=== PATIENT | male | born 1970 | race Caucasian/White ===

== ENCOUNTER → 2017-01-13 | Outpatient (CLI) | payer OTHER ==
[2017-01-13 10:07] LABS: Basophils # (A) 0.1 k/uL (0-0.2); Basophils % (A) 1 %; CH 27.9; CHCM 31.7; Eosinophils # (A) 0.1 k/uL (0-0.7); Eosinophils % (A) 2 %; HDW 2.49; HGB 13.2 gm/dL (13.0-17.5); Luc # (Auto) 0.16; Luc % (Auto) 3; Lymphocytes # (A) 2.7 k/uL (1.0-4.8); Lymphocytes % (A) 42 %; MCH 27.7 pg (25.0-35.0); MCHC 31.3 g/dL (31.0-37.0); MCV 88.3 fL (80.0-100.0); Mean Platelet Volume 6.3; Monocytes # (A) 0.4 k/uL (0-1.0); Monocytes % (A) 6 %; Neutrophils # (A) 3.1 k/uL (1.3-7.7); Neutrophils % (A) 47 %; RBC 4.76 m/uL (4.30-5.90); WBC 6.5 k/uL (3.8-10.6); WBC (Perox) 6.78
[2017-01-13 10:28] LABS: ALT 102 U/L (21-72); AST 87 U/L (17-59); Alkaline Phosphatase 258 U/L (38-126); Anion Gap 7 mmol/L; Blood Urea Nitrogen 20 mg/dL (9-20); Calcium 9.5 mg/dL (8.4-10.2); Carbon Dioxide 31 mmol/L (22-30); Chloride 106 mmol/L (98-107); Cholesterol 154 mg/dL (<200); Glucose 59 mg/dL (74-99); HDL Cholesterol 47 mg/dL (40-60); Non-African American GFR(MDRD) >60 (>60 ml/min/1.73 sqM); Potassium 5.4 mmol/L (3.5-5.1); Sodium 144 mmol/L (137-145); Total Bilirubin 0.4 mg/dL (0.2-1.3); Triglycerides 140 mg/dL (<150)
[2017-01-13 12:05] LABS: Hemoglobin A1C 8.8 % (4.2-6.1)
== END | disposition home or self-care (01) ==
LOC: LABWHC1 09:22
PROVIDERS: ATTEND Family Medicine
DX: E10.65 Type 1 diabetes mellitus with hyperglycemia (principal); E78.5 Hyperlipidemia, unspecified
CPT/HCPCS: 36415; 80053; 80061; 83036; 85025

== ENCOUNTER → 2017-10-28 | Outpatient (CLI) | payer OTHER ==
[2017-10-28 11:52] LABS: Basophils % (A) 1 %; Eosinophils # (A) 0.2 k/uL (0-0.7); Eosinophils % (A) 3 %; HCT 42.2 % (39.0-53.0); Lymphocytes # (A) 2.4 k/uL (1.0-4.8); Lymphocytes % (A) 41 %; MCH 27.5 pg (25.0-35.0); MCHC 30.9 g/dL (31.0-37.0); MCV 89.1 fL (80.0-100.0); Mean Platelet Volume 6.5; Monocytes # (A) 0.4 k/uL (0-1.0); Monocytes % (A) 7 %; Neutrophils # (A) 2.7 k/uL (1.3-7.7); Neutrophils % (A) 46 %; Platelet Count 301 k/uL (150-450); RBC 4.74 m/uL (4.30-5.90); RDW 13.9 % (11.5-15.5); WBC 5.8 k/uL (3.8-10.6)
[2017-10-28 11:57] LABS: ALT 51 U/L (21-72); AST 50 U/L (17-59); Albumin 3.9 g/dL (3.5-5.0); Alkaline Phosphatase 175 U/L (38-126); Anion Gap 7 mmol/L; Blood Urea Nitrogen 18 mg/dL (9-20); Calcium 9.5 mg/dL (8.4-10.2); Carbon Dioxide 31 mmol/L (22-30); Chloride 107 mmol/L (98-107); Cholesterol 128 mg/dL (<200); Glucose 68 mg/dL (74-99); HDL Cholesterol 38 mg/dL (40-60); LDL Cholesterol,Calculated 66 mg/dL (0-99); Potassium 4.4 mmol/L (3.5-5.1); Sodium 145 mmol/L (137-145); Total Bilirubin 0.4 mg/dL (0.2-1.3); Total Protein 6.3 g/dL (6.3-8.2); Triglycerides 121 mg/dL (<150)
[2017-10-28 12:27] LABS: PSA Annual Screen 0.34 ng/mL (0.00-4.00)
[2017-10-28 16:51] LABS: Vitamin D 25 Hydroxy 22.6 ng/mL (30.0-100.0)
[2017-10-28 23:39] LABS: Hemoglobin A1C 8.9 % (4.0-6.0)
== END | disposition home or self-care (01) ==
LOC: LABWHC1 11:07
PROVIDERS: ATTEND Family Medicine
DX: Z00.01 Encounter for general adult medical examination with abnormal findings (principal); E10.65 Type 1 diabetes mellitus with hyperglycemia; E78.5 Hyperlipidemia, unspecified; Z12.5 Encounter for screening for malignant neoplasm of prostate
CPT/HCPCS: 80061; 80053; 84443; 82607; 85025; 82306; 83036; 36415; G0103

== ENCOUNTER → 2018-04-28 | Outpatient (CLI) | payer OTHER ==
[2018-04-28 10:10] LABS: Basophils % (A) 0 %; Eosinophils # (A) 0.2 k/uL (0-0.7); Eosinophils % (A) 3 %; HGB 13.3 gm/dL (13.0-17.5); Lymphocytes # (A) 2.6 k/uL (1.0-4.8); Lymphocytes % (A) 46 %; MCH 27.4 pg (25.0-35.0); MCHC 31.7 g/dL (31.0-37.0); MCV 86.6 fL (80.0-100.0); Mean Platelet Volume 6.4; Monocytes # (A) 0.3 k/uL (0-1.0); Monocytes % (A) 6 %; Neutrophils # (A) 2.4 k/uL (1.3-7.7); Neutrophils % (A) 42 %; Platelet Count 311 k/uL (150-450); RBC 4.85 m/uL (4.30-5.90); RDW 14.3 % (11.5-15.5); WBC 5.6 k/uL (3.8-10.6)
[2018-04-28 10:37] LABS: ALT 62 U/L (21-72); AST 56 U/L (17-59); Alkaline Phosphatase 192 U/L (38-126); Anion Gap 5 mmol/L; Blood Urea Nitrogen 19 mg/dL (9-20); Calcium 9.9 mg/dL (8.4-10.2); Carbon Dioxide 29 mmol/L (22-30); Chloride 107 mmol/L (98-107); Cholesterol 261 mg/dL (<200); Glucose 145 mg/dL (74-99); HDL Cholesterol 45 mg/dL (40-60); LDL Cholesterol,Calculated 182 mg/dL (0-99); Potassium 5.4 mmol/L (3.5-5.1); Sodium 141 mmol/L (137-145); Total Bilirubin 0.4 mg/dL (0.2-1.3); Total Protein 6.7 g/dL (6.3-8.2); Triglycerides 169 mg/dL (<150)
[2018-04-28 20:05] LABS: Hemoglobin A1C 9.1 % (4.0-6.0)
== END | disposition home or self-care (01) ==
LOC: LABWHC1 09:25
PROVIDERS: ATTEND Nurse Practitioner Family
DX: E10.65 Type 1 diabetes mellitus with hyperglycemia (principal); E55.9 Vitamin D deficiency, unspecified; E78.5 Hyperlipidemia, unspecified
CPT/HCPCS: 36415; 80053; 80061; 82306; 83036; 85025

== ENCOUNTER → 2018-09-15 | Outpatient (CLI) | payer OTHER ==
[2018-09-15 11:52] LABS: Basophils % (A) 1 %; Eosinophils # (A) 0.3 k/uL (0-0.7); Eosinophils % (A) 4 %; HCT 43.8 % (39.0-53.0); HGB 14.1 gm/dL (13.0-17.5); Lymphocytes % (A) 40 %; MCH 27.8 pg (25.0-35.0); MCHC 32.2 g/dL (31.0-37.0); MCV 86.5 fL (80.0-100.0); Mean Platelet Volume 5.9; Monocytes # (A) 0.4 k/uL (0-1.0); Monocytes % (A) 5 %; Neutrophils # (A) 3.5 k/uL (1.3-7.7); Neutrophils % (A) 47 %; Platelet Count 334 k/uL (150-450); RBC 5.07 m/uL (4.30-5.90); RDW 14.1 % (11.5-15.5); WBC 7.5 k/uL (3.8-10.6)
[2018-09-15 16:31] LABS: Albumin 4.3 g/dL (3.80-4.90); Albumin/Globulin Ratio 1.95 (1.20-2.10); Anion Gap 8.4 mmol/L (4.00-12.00); Calcium 9.5 mg/dL (8.7-10.3); Carbon Dioxide 26.6 mmol/L (21.6-31.8); Globulin 2.2 g/dL (1.6-3.3); LDL Cholesterol,Calculated 172.4 mg/dL (0.0-131.0); Potassium 5.4 mmol/L (3.5-5.5); Total Bilirubin 0.3 mg/dL (0.2-1.2); Total Protein 6.5 g/dL (6.2-8.2); VLDL Calculation 33.6 mg/dL (5.00-40.00)
[2018-09-15 18:51] LABS: Hemoglobin A1C 8.6 % (4.0-6.0)
== END | disposition home or self-care (01) ==
LOC: LABWHC1 09:43
PROVIDERS: ATTEND Family Medicine
DX: E10.65 Type 1 diabetes mellitus with hyperglycemia (principal); E78.5 Hyperlipidemia, unspecified
CPT/HCPCS: 36415; 80053; 80061; 83036; 85025

== ENCOUNTER → 2019-02-28 | Outpatient (CLI) | payer OTHER ==
[2019-02-28 09:40] LABS: Basophils % (A) 0 %; Eosinophils # (A) 0.2 k/uL (0-0.7); Eosinophils % (A) 3 %; HCT 43.8 % (39.0-53.0); HGB 13.5 gm/dL (13.0-17.5); Lymphocytes # (A) 2.7 k/uL (1.0-4.8); Lymphocytes % (A) 42 %; MCH 26.3 pg (25.0-35.0); MCHC 30.9 g/dL (31.0-37.0); MCV 85.2 fL (80.0-100.0); Mean Platelet Volume 6.4; Monocytes # (A) 0.4 k/uL (0-1.0); Monocytes % (A) 6 %; Neutrophils # (A) 3.1 k/uL (1.3-7.7); Neutrophils % (A) 47 %; Platelet Count 318 k/uL (150-450); RBC 5.14 m/uL (4.30-5.90); RDW 13.8 % (11.5-15.5); WBC 6.6 k/uL (3.8-10.6)
[2019-02-28 17:28] LABS: Albumin 4.3 g/dL (3.80-4.90); Albumin/Globulin Ratio 2.15 (1.60-3.17); Anion Gap 7.2 mmol/L (4.00-12.00); Calcium 9.5 mg/dL (8.7-10.3); Carbon Dioxide 26.8 mmol/L (21.6-31.8); LDL Cholesterol,Calculated 84.4 mg/dL (0.0-131.0); Potassium 4.6 mmol/L (3.5-5.5); Total Bilirubin 0.4 mg/dL (0.2-1.2); Total Protein 6.3 g/dL (6.2-8.2); VLDL Calculation 26.6 mg/dL (5.00-40.00)
== END | disposition home or self-care (01) ==
LOC: LABWHC1 08:17
PROVIDERS: ATTEND Family Medicine
DX: Z00.01 Encounter for general adult medical examination with abnormal findings (principal); E78.5 Hyperlipidemia, unspecified; Z12.5 Encounter for screening for malignant neoplasm of prostate
CPT/HCPCS: 84439; 80061; 80053; 84443; 85025; 36415; G0103

== ENCOUNTER → 2019-09-19 | Outpatient (CLI) | payer OTHER ==
[2019-09-19 16:52] LABS: African American GFR (CKD) 74.3 (60.0-200.0); Albumin 4.8 g/dL (3.80-4.90); Albumin/Globulin Ratio 2.29 (1.60-3.17); Anion Gap 8.6 mmol/L (4.00-12.00); Carbon Dioxide 26.4 mmol/L (21.6-31.8); Chol/HDL Ratio 3.77; Globulin 2.1 g/dL (1.6-3.3); LDL Cholesterol,Calculated 94.4 mg/dL (0.0-131.0); Non-African American GFR(CKD) 64.1 (60.0-200.0); Potassium 5.2 mmol/L (3.5-5.5); Total Bilirubin 0.6 mg/dL (0.2-1.2); Total Protein 6.9 g/dL (6.2-8.2); VLDL Calculation 27.6 mg/dL (5.00-40.00)
== END | disposition home or self-care (01) ==
LOC: LABWHC1 09:21
PROVIDERS: ATTEND Family Medicine
DX: E78.5 Hyperlipidemia, unspecified (principal)
CPT/HCPCS: 36415; 80053; 80061

== ENCOUNTER → 2020-04-25 | Outpatient (CLI) | payer OTHER | END | disposition home or self-care (01) | LOC: CPPFTMAIN 07:32 | PROVIDERS: ATTEND Internal Medicine Critical Care Medicine | DX: J44.9 Chronic obstructive pulmonary disease, unspecified (principal); R94.2 Abnormal results of pulmonary function studies | CPT/HCPCS: 94060; 94726; 94729 ==

== ENCOUNTER → 2020-06-24 | Outpatient (CLI) | payer OTHER ==
[2020-06-24 15:19] LABS: African American GFR (CKD) 101.3 (60.0-200.0); Albumin 4.3 g/dL (3.80-4.90); Albumin/Globulin Ratio 1.95 (1.60-3.17); Anion Gap 3.7 mmol/L (4.00-12.00); Calcium 9.8 mg/dL (8.7-10.3); Carbon Dioxide 30.3 mmol/L (21.6-31.8); Chol/HDL Ratio 3.36; Globulin 2.2 g/dL (1.6-3.3); Non-African American GFR(CKD) 87.4 (60.0-200.0); Potassium 4.8 mmol/L (3.5-5.5); Total Bilirubin 0.4 mg/dL (0.3-1.2); Total Protein 6.5 g/dL (6.2-8.2)
== END | disposition home or self-care (01) ==
LOC: LABWHC1 09:31
PROVIDERS: ATTEND Family Medicine
DX: E78.5 Hyperlipidemia, unspecified (principal)
CPT/HCPCS: 36415; 80053; 80061

== ENCOUNTER → 2021-01-27 | Outpatient (CLI) | payer OTHER ==
[2021-01-27 14:51] LABS: African American GFR (CKD) 90.2 (60.0-200.0); Albumin 4.3 g/dL (3.80-4.90); Albumin/Globulin Ratio 1.95 (1.60-3.17); Anion Gap 3.7 mmol/L (4.00-12.00); BUN/Creat Ratio 18.18 Ratio (12.00-20.00); Calcium 9.3 mg/dL (8.7-10.3); Carbon Dioxide 28.3 mmol/L (21.6-31.8); Chol/HDL Ratio 3.71; Globulin 2.2 g/dL (1.6-3.3); Non-African American GFR(CKD) 77.9 (60.0-200.0); Potassium 4.8 mmol/L (3.5-5.5); Total Bilirubin 0.4 mg/dL (0.3-1.2); Total Protein 6.5 g/dL (6.2-8.2)
== END | disposition home or self-care (01) ==
LOC: LABWHC1 09:34
PROVIDERS: ATTEND Family Medicine
DX: E78.5 Hyperlipidemia, unspecified (principal)
CPT/HCPCS: 36415; 80053; 80061

== ENCOUNTER → 2021-05-21 | Outpatient (CLI) | payer OTHER ==
[2021-05-22 05:21] LABS: Hepatitis A Antibody IgM Non-Reactive (Non-Reactive); Hepatitis B Core IgM Non-Reactive (Non-Reactive); Hepatitis B Surface Antigen Non-Reactive (Non-Reactive); Hepatitis C IgG Antibody Non-Reactive (Non-Reactive)
[2021-05-22 17:53] LABS: Ferritin 168.5 ng/mL (22.0-322.0)
[2021-05-22 17:59] LABS: % Iron Saturation 21.92 (15.00-50.00); Albumin 4.6 g/dL (3.80-4.90); Albumin/Globulin Ratio 1.92 (1.60-3.17); Bilirubin, Conjugated 0.2 mg/dL (0.20-0.40); Bilirubin,Unconjugated 0.2 mg/dL; Globulin 2.4 g/dL (1.6-3.3); Total Bilirubin 0.4 mg/dL (0.3-1.2)
[2021-05-23 00:33] LABS: Protein, Total 7.1 g/dL (6.2-8.2)
== END | disposition home or self-care (01) ==
LOC: LABWHC1 14:47
PROVIDERS: ATTEND Family Medicine
DX: Z12.5 Encounter for screening for malignant neoplasm of prostate (principal); R74.01 Elevation of levels of liver transaminase levels
CPT/HCPCS: 80076; 80074; 82728; 82977; 83540; 83550; 82103; 84165; 82390; 36415; G0103

== ENCOUNTER → 2021-11-14 | Outpatient (CLI) | payer OTHER ==
[2021-11-14 14:56] LABS: ALT 56 U/L (10-49); AST 38 U/L (14-35); African American GFR (CKD) 100.6 (60.0-200.0); Albumin 4.4 g/dL (3.8-4.9); Albumin/Globulin Ratio 1.42 (1.60-3.17); Alkaline Phosphatase 250 U/L (41-126); Blood Urea Nitrogen 17.4 mg/dL (9.0-27.0); Calcium 9.6 mg/dL (8.7-10.3); Carbon Dioxide 23.3 mmol/L (20.0-27.5); Chloride 105 mmol/L (96-109); Chol/HDL Ratio 3.39 Ratio; Globulin 3.1 g/dL (1.6-3.3); Glucose 145 mg/dL (70-110); LDL Cholesterol,Calculated 84.8 mg/dL (0.0-131.0); Non-African American GFR(CKD) 86.8 (60.0-200.0); Potassium 4.8 mmol/L (3.5-5.5); Sodium 139 mmol/L (135-145); Total Protein 7.5 g/dL (6.2-8.2)
[2021-11-14 15:27] LABS: Basophils # (A) 0.03 X 10*3/uL (0.00-0.10); Basophils % (A) 0.4 %; Eosinophils # (A) 0.19 X 10*3/uL (0.04-0.35); Eosinophils % (A) 2.8 %; HCT 43.6 % (39.6-50.0); HGB 13.4 g/dL (13.0-17.0); Immature Grans, Automated 0.3 %; Lymphocytes # (A) 2.42 X 10*3/uL (0.90-5.00); Lymphocytes % (A) 35.5 %; MCH 26.5 pg (27.0-32.0); MCHC 30.7 g/dL (32.0-37.0); MCV 86.2 fL (80.0-97.0); Mean Platelet Volume 10.3 fL (9.5-12.2); Monocytes # (A) 0.55 X 10*3/uL (0.20-1.00); Monocytes % (A) 8.1 %; NRBC Per 100 WBC 0 /100 WBCS (0.0-0.0); Neutrophils # (A) 3.61 X 10*3/uL (1.80-7.70); Neutrophils % (A) 52.9 %; Platelet Count 290 X 10*3/uL (140-440); RBC 5.06 X 10*6/uL (4.40-5.60); RDW 14.6 % (11.5-14.5); WBC 6.82 X 10*3/uL (4.50-10.00)
== END | disposition home or self-care (01) ==
LOC: LABWHC1 09:11
PROVIDERS: ATTEND Family Medicine
DX: Z01.818 Encounter for other preprocedural examination (principal); E78.5 Hyperlipidemia, unspecified; E10.65 Type 1 diabetes mellitus with hyperglycemia
CPT/HCPCS: 36415; 80053; 80061; 83036; 85025

== ENCOUNTER → 2021-11-18 | Outpatient (CLI) | payer OTHER ==
[~2021-11-18] MED LIST: REGADENOSON 0.4 MG/5 ML SYRINGE IV PRN
--- NOTE | 2021-11-19 11:10 | ECHOF ---
Referral Reason:R94.31 MEASUREMENTS -------- HEIGHT: 167.6 cm WEIGHT: 90.7 kg BP: IVSd: 1.6 cm (0.6 - 1.1) LVIDd: 3.6 cm (3.9 - 5.3) LVPWd: 1.3 cm (0.6 - 1.1) EDV(Teich): 53 ml IVSs: 1.8 cm LVIDs: 2.5 cm LVPWs: 1.6 cm %IVS Thck: 15 % ESV(Teich): 22 ml EF(Teich): 58 % %FS: 30 % SV(Teich): 31 ml RVIDd: 4.1 cm (< 3.3) LALs A4C: 4.6 cm LAAs A4C: 12.7 cm LAESV A-L A4C: 30 ml LAESV MOD A4C: 28 ml LALs A2C: 4.8 cm LAAs A2C: 15.0 cm LAESV A-L A2C: 40 ml LAESV MOD A2C: 38 ml LAESV(A-L): 35 ml LAESV Index (A-L): 17.59 ml/m Ao Diam: 3.0 cm (2.0 - 3.7) LA Diam: 4.1 cm (2.7 - 3.8) AV Cusp: 1.8 cm (1.5 - 2.6) MV E Jarrod: 1.08 m/s MV DecT: 181 ms MV Dec Bracken: 6.0 m/s MV A Jarrod: 1.00 m/s MV E/A Ratio: 1.08 MV PHT: 52 ms LVOT Vmax: 1.42 m/s LVOT maxP.06 mmHg AV Vmax: 1.78 m/s AV maxP.65 mmHg FINDINGS -------- Sinus rhythm. This was a technically adequate study. The left ventricular size is normal. There is moderate concentric left ventricular hypertrophy. O verall left ventricular systolic function is normal with, an EF between 55 - 60 %. The right ventricle is moderately enlarged. Normal LA size by volume 22+/-6 ml/m2. The right atrial size is normal. Interatrial and interventricular septum intact. There is no evidence of aortic regurgitation. There is no evidence of aortic stenosis. No mitral regurgitation. Trace tricuspid regurgitation present. Unable to estimate RVSP due to inadequate TR jet spectral do ppler profile. There is no pulmonic regurgitation present. The aortic root size is normal. IVC Not well visulized. There is no pericardial effusion. CONCLUSIONS -------- 1. The left ventricular size is normal. 2. There is moderate concentric left ventricular hypertrophy. 3. Overall left ventricular systolic function is normal with, an EF between 55 - 60 %. 4. The right ventricle is moderately enlarged. 5. Trace tricuspid regurgitation present. ASSISTANT DRAFTER: Gladis Turner RDCS
== END | disposition home or self-care (01) ==
LOC: RADNMMAIN 08:06
PROVIDERS: ATTEND Family Medicine
DX: I51.7 Cardiomegaly (principal); R94.31 Abnormal electrocardiogram [ECG] [EKG]
CPT/HCPCS: 93306

== ENCOUNTER → 2021-11-19 | Outpatient (CLI) | payer OTHER ==
--- NOTE | 2021-11-19 12:10 | P.STRESS ---
- Stress Test Note Stress Test Results/Findings: Exam Performed: NM stress lexiscan cardiolite Exam Date: 11/19/21 Reason for Exam: Pre Surgery Height: 5 ft 6 in Weight: 90.718 kg Protocol: Lexiscan Stage: na Duration of Exercise: na Resting Heart Rate: 80 Resting Blood Pressure: 146/69 Maximum Achieved Heart Rate: 111 Maximum Achieved Blood Pressure: 184/82 85% PMHR: 144 100% PMHR: 169 METS: na Technologist Comment: Stress Test Results/Findings: Lexiscan Cardiolite stress test Baseline heart rate 80 beats a minute, Baseline blood pressure 146/69 mmHg Baseline 12-lead EKG shows sinus rhythm normal IN narrow QRS normal ST segments Patient received Lexiscan infusion per protocol Mild sinus tachycardia. Normal blood pressure No ECG abnormalities No arrhythmias Nuclear portion will be reported separately
--- NOTE | 2021-11-19 12:17 | NM ---
EXAMINATION TYPE: NM stress lexiscan cardiolite DATE OF EXAM: 11/19/2021 COMPARISON: NONE HISTORY: Chest pain TECHNIQUE: After the intravenous administration of 9.4 mCi Tc 99m Sestamibi - Cardiolite resting SPE CT images acquired 75 minutes post injection. The patient received 0.4mg Lexiscan, 24.7 mCi Tc 99m Sestamibi - Stress images obtained [address] injection FINDINGS: Review of stress and rest SPECT images demonstrates no distinct perfusion abnormality. Gated analysi s shows normal wall motion with an estimated left ventricular ejection fraction of 62 %. IMPRESSION: No scintigraphic evidence for reversible ischemia.
--- NOTE | 2021-11-20 09:58 | EST ---
Stress Test Results/Findings: Exam Performed: NM stress lexiscan cardiolite Exam Date: 11/19/21 Reason for Exam: Pre Surgery Height: 5 ft 6 in Weight: 90.718 kg Protocol: Lexiscan Stage: na Duration of Exercise: na Resting Heart Rate: 80 Resting Blood Pressure: 146/69 Maximum Achieved Heart Rate: 111 Maximum Achieved Blood Pressure: 184/82 85% PMHR: 144 100% PMHR: 169 METS: na Technologist Comment: Stress Test Results/Findings: Lexiscan Cardiolite stress test Baseline heart rate 80 beats a minute, Baseline blood pressure 146/69 mmHg Baseline 12-lead EKG shows sinus rhythm normal IA narrow QRS normal ST segments Patient received Lexiscan infusion per protocol Mild sinus tachycardia. Normal blood pressure No ECG abnormalities No arrhythmias Nuclear portion will be reported separately MTDD
== END | disposition home or self-care (01) ==
LOC: RADNMMAIN 08:23
PROVIDERS: ATTEND Family Medicine
DX: R94.31 Abnormal electrocardiogram [ECG] [EKG] (principal)
CPT/HCPCS: 93017; 78452; A9500

== ENCOUNTER → 2022-05-18 | Outpatient (CLI) | payer OTHER ==
[2022-05-18 14:43] LABS: Basophils # (A) 0.03 X 10*3/uL (0.00-0.10); Basophils % (A) 0.4 %; Eosinophils # (A) 0.15 X 10*3/uL (0.04-0.35); Eosinophils % (A) 1.8 %; HCT 43.8 % (39.6-50.0); Immature Grans, Automated 0.1 %; Lymphocytes # (A) 2.62 X 10*3/uL (0.90-5.00); Lymphocytes % (A) 31.4 %; MCH 27.8 pg (27.0-32.0); MCV 87.1 fL (80.0-97.0); Mean Platelet Volume 9.3 fL (9.5-12.2); Monocytes # (A) 0.45 X 10*3/uL (0.20-1.00); Monocytes % (A) 5.4 %; NRBC Per 100 WBC 0 /100 WBCS (0.0-0.0); Neutrophils # (A) 5.08 X 10*3/uL (1.80-7.70); Neutrophils % (A) 60.9 %; Platelet Count 311 X 10*3/uL (140-440); RBC 5.03 X 10*6/uL (4.40-5.60); WBC 8.34 X 10*3/uL (4.50-10.00)
[2022-05-18 15:33] LABS: ALT 91 U/L (10-49); AST 54 U/L (14-35); Albumin 4.4 g/dL (3.8-4.9); Albumin/Globulin Ratio 1.63 (1.60-3.17); Alkaline Phosphatase 363 U/L (41-126); BUN/Creat Ratio 15.73 Ratio (12.00-20.00); Blood Urea Nitrogen 17.3 mg/dL (9.0-27.0); Calcium 9.7 mg/dL (8.7-10.3); Carbon Dioxide 23.9 mmol/L (20.0-27.5); Chloride 102 mmol/L (96-109); Chol/HDL Ratio 3.76 Ratio; Globulin 2.7 g/dL (1.6-3.3); Glucose 332 mg/dL (70-110); LDL Cholesterol,Calculated 105.8 mg/dL (0.0-131.0); Non-African American GFR(CKD) 76.8 (60.0-200.0); Potassium 4.2 mmol/L (3.5-5.5); Sodium 139 mmol/L (135-145); Total Protein 7.1 g/dL (6.2-8.2)
== END | disposition home or self-care (01) ==
LOC: LABWHC1 09:01
PROVIDERS: ATTEND Family Medicine
DX: Z00.01 Encounter for general adult medical examination with abnormal findings (principal)
CPT/HCPCS: 36415; 80053; 80061; 84439; 84443; 85025

== ENCOUNTER → 2022-12-01 | Outpatient (CLI) | payer OTHER ==
[2022-12-01 10:34] LABS: Basophils # (A) 0.04 X 10*3/uL (0.00-0.10); Basophils % (A) 0.5 %; Eosinophils # (A) 0.23 X 10*3/uL (0.04-0.35); Eosinophils % (A) 2.6 %; HCT 43.4 % (39.6-50.0); HGB 13.9 g/dL (13.0-17.0); Immature Grans, Automated 0.2 %; Lymphocytes # (A) 2.94 X 10*3/uL (0.90-5.00); Lymphocytes % (A) 33.1 %; MCH 27.4 pg (27.0-32.0); MCV 85.4 fL (80.0-97.0); Mean Platelet Volume 9.1 fL (9.5-12.2); Monocytes # (A) 0.65 X 10*3/uL (0.20-1.00); Monocytes % (A) 7.3 %; NRBC Per 100 WBC 0 /100 WBCS (0.0-0.0); Neutrophils % (A) 56.3 %; Platelet Count 301 X 10*3/uL (140-440); RBC 5.08 X 10*6/uL (4.40-5.60); RDW 13.9 % (11.5-14.5); WBC 8.88 X 10*3/uL (4.50-10.00)
[2022-12-01 10:43] LABS: ALT 72 U/L (10-49); AST 44 U/L (14-35); Albumin 4.2 g/dL (3.8-4.9); Albumin/Globulin Ratio 1.35 (1.60-3.17); Alkaline Phosphatase 307 U/L (41-126); BUN/Creat Ratio 14.55 Ratio (12.00-20.00); Calcium 9.6 mg/dL (8.7-10.3); Carbon Dioxide 24.6 mmol/L (20.0-27.5); Chloride 104 mmol/L (96-109); Globulin 3.2 g/dL (1.6-3.3); Glucose 238 mg/dL (70-110); LDL Cholesterol,Calculated 99.5 mg/dL (0.0-131.0); Non-African American GFR(CKD) 76.8 (60.0-200.0); Potassium 4.3 mmol/L (3.5-5.5); Sodium 139 mmol/L (135-145); Total Protein 7.4 g/dL (6.2-8.2)
== END | disposition home or self-care (01) ==
LOC: LABWHC1 07:18
PROVIDERS: ATTEND Family Medicine
DX: E78.5 Hyperlipidemia, unspecified (principal)
CPT/HCPCS: 36415; 80053; 80061; 85025

== ENCOUNTER → 2022-12-15 | Outpatient (CLI) | payer OTHER ==
--- NOTE | 2022-12-15 08:42 | CTL ---
EXAMINATION TYPE: CT Low Dose Lung DATE OF EXAM ORDERED: 12/15/2022 COMPARISON: HISTORY: . Low Dose CT Lung Screening CT DLP: 110.[address] CTDI: 3.3 mGy IV CONTRAST USED: None. SCREENING VISIT: First visit COMPARISON: None. TECHNIQUE: Low dose computed tomography scan was performed through the chest at 1 millimeter thick se ctions and reconstructed images in the coronal plane at [address] DIAGNOSTIC QUALITY: Satisfactory FINDINGS: LUNG NODULES: Not presentLeft lung: no nodules identified.Right lung: no nodules identified. LUNGS: COPD: Severity: None Fibrosis: Severity:None Lymph nodes: None Other findings: None RIGHT PLEURAL SPACE: Effusion: None Calcification: None Thickening: None Pneumothorax: None LEFT PLEURAL SPACE: Effusion: None Calcification: None Thickening: None Pneumothorax: None HEART: Heart Size: Mildly enlarged Coronary calcification: Mild Pericardial effusion: None OTHER FINDINGS: Upper abdomen: No significant abnormality Bony thorax: Degenerative changes Supraclavicular region: No significant abnormalityOther: No significant abnormalityI IMPRESSION: No discrete nodularity FOLLOW UP CT CHEST RECOMMENDATION: Follow-up screening in one year CT LUNG RAD: LUNG RAD CATEGORY 1 negative
== END | disposition home or self-care (01) ==
LOC: RADCTMAIN 06:22
PROVIDERS: ATTEND Family Medicine
DX: Z12.2 Encounter for screening for malignant neoplasm of respiratory organs (principal); F17.210 Nicotine dependence, cigarettes, uncomplicated
CPT/HCPCS: 71271

== ENCOUNTER → 2023-04-08 | Outpatient (CLI) | payer OTHER ==
--- NOTE | 2023-04-08 14:39 | XR ---
EXAMINATION TYPE: XR abdomen 1V DATE OF EXAM: 04/08/2023 COMPARISON: 02/04/2015 HISTORY: Abnormal TECHNIQUE: One view abdominal series FINDINGS: The osseous structures are intact. The bowel gas pattern is nonspecific. Hypertrophic changes of the spine. There is postsurgical change right hip. Calcification of the vas deferens noted. Rounded calc ifications overlying the L5-S1 level could be vascular. There is a punctate 2 mm upper pole calculus overlying the left kidney and 2 mm single punctate calcu erlin overlying the right renal outline. There is a 3 mm calcification along the medial margin of this sacrum on the right which is indetermin ate. IMPRESSION: 1. Probable 2 mm right lower pole and left upper pole renal calculi. 2. There is a 3 mm calculus overlying the sacrum on the right. This is nonspecific and could potentia lly be within the course of the right ureter.
== END | disposition home or self-care (01) ==
LOC: RADXRMAIN 14:09
DX: N20.0 Calculus of kidney (principal)
CPT/HCPCS: 74018

== ENCOUNTER → 2023-04-09 | Outpatient (CLI) | payer OTHER ==
[2023-04-09 16:07] LABS: Basophils # (A) 0.04 X 10*3/uL (0.00-0.10); Basophils % (A) 0.5 %; Eosinophils # (A) 0.17 X 10*3/uL (0.04-0.35); Eosinophils % (A) 2.3 %; HCT 41.9 % (39.6-50.0); HGB 13.7 d/dL (13.0-17.0); Lymphocytes # (A) 3.13 X 10*3/uL (0.90-5.00); Lymphocytes % (A) 41.7 %; MCH 27.8 pg (27.0-32.0); MCHC 32.7 d/dL (32.0-37.0); MCV 85.2 FL (80.0-97.0); Mean Platelet Volume 9.3 FL (9.5-12.2); Monocytes # (A) 0.63 X 10*3/uL (0.20-1.00); Monocytes % (A) 8.4 %; NRBC Per 100 WBC 0 X 10*3/uL (0.00-0.01); Neutrophils # (A) 3.52 X 10*3/uL (1.80-7.70); Platelet Count 324 X 10*3/uL (140-440); RBC 4.92 X 10*6/uL (4.40-5.60); RDW 14.3 % (11.5-14.5)
[2023-04-09 17:11] LABS: BUN/Creat Ratio 14.08 Ratio (12.00-20.00); Blood Urea Nitrogen 16.9 mg/dL (9.0-27.0); Calcium 9.8 mg/dL (8.7-10.3); Carbon Dioxide 24.1 mmol/L (21.6-31.8); Chloride 106 mmol/L (96-109); Glucose 138 mg/dL (70-110); Potassium 3.9 mmol/L (3.5-5.5); Sodium 142 mmol/L (135-145)
== END | disposition home or self-care (01) ==
LOC: LABPAT 11:45
PROVIDERS: ATTEND Urology
DX: Z01.812 Encounter for preprocedural laboratory examination (principal); N20.0 Calculus of kidney; N20.1 Calculus of ureter
CPT/HCPCS: 36415; 80048; 85025

== ENCOUNTER 2023-04-15 10:06 | Day surgery (SDC) | payer OTHER ==
[2023-04-09 13:14] VITALS: BMI 31.6
--- NOTE | 2023-04-11 19:07 | P.GSHP ---
History of Present Illness H&P Date: 04/11/23 Chief Complaint: Right hydronephrosis The patient is a 53-year-old white male with a history of urolithiasis, for which he underwent right ureteroscopy in 2016. He was recently found to have abnormal liver function tests. He underwent a CT scan for evaluation, revealing moderate right hydroureteronephrosis due to a 9 mm right distal ureteral calculus. Additional bilateral renal calculi measuring up to 7 mm in size were seen. - Constitutional Constitutional: Denies chills, Denies fever - Gastrointestinal Gastrointestinal: Denies nausea, Denies vomiting - Genitourinary (Male) Genitourinary: Reports kidney stones, Denies dysuria, Denies flank pain, Denies hematuria Past Medical History Past Medical History: Diabetes Mellitus Additional Past Medical History / Comment(s): TYPE I DM. RENAL CALCULI. 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 Past Anesthesia/Blood Transfusion Reactions: No Reported Reaction Past Psychological History: No Psychological Hx Reported Smoking Status: Current every day smoker Past Alcohol Use History: None Reported Past Drug Use History: None Reported - Past Family History Mother Family Medical History: No Reported History Medications and Allergies Home Medications Medication Instructions Recorded Confirmed Type Baclofen 10 mg PO DIRECTED 04/12/16 04/09/23 History Diazepam [Valium] 5 mg PO DIRECTED 04/12/16 04/09/23 History HYDROcodone/APAP 7.5-325MG [[place] 1 tab PO DIRECTED 04/12/16 04/09/23 History 7.5-325] Aspirin [Adult Low Dose Aspirin EC] 81 mg PO DAILY 04/09/23 04/09/23 History L.acidoph,Paracasei, B.lactis 1 each PO DAILY 04/09/23 04/09/23 History [Probiotic] Multivitamins, Thera [Multivitamin 1 tab PO DAILY 04/09/23 04/09/23 History (formulary)] Nf-Insulin Pump 1 applic .ROUTE DIRECTED 04/09/23 04/09/23 History Nf-Liver Supplement 1 tab PO DAILY 04/09/23 04/09/23 History Omeprazole 40 mg PO DAILY 04/09/23 04/09/23 History Allergies Allergy/AdvReac Type Severity Reaction Status Date / Time morphine Allergy Itching Verified 04/09/23 13:03 Penicillins Allergy Unknown Verified 04/09/23 13:03 Childhood Surgical - Exam - General well developed, well nourished, no distress - Neck no masses, trachea midline - Respiratory normal respiratory effort - Abdomen Abdomen: soft, non tender, no guarding, no rigid, no rebound - Genitourinary normal penis with no external lesions, testicles non-tender - Psychiatric oriented to time, oriented to person, oriented to place, speech is normal, memory intact Results - Imaging CT scan - abdomen: report reviewed Assessment and Plan Assessment: The patient was offered the options of medical expulsion therapy, extracorporal shockwave lithotripsy (ESWL), ureteroscopic removal of the right distal ureteral calculus, and ureteroscopic removal of all right-sided calculi. He has chosen to undergo the latter. He is aware of potential risks, which include anesthesia, infection, inability to remove all calculi, and ureteral injury. He is aware of the need for a ureteral stent postoperatively. (1) Calculus of ureter Status: Acute Code(s): N20.1 - CALCULUS OF URETER SNOMED Code(s): 51892057 (2) Calculus of kidney Status: Acute Code(s): N20.0 - CALCULUS OF KIDNEY SNOMED Code(s): 06425802 Plan: Cystoscopy, right retrograde pyelogram, right ureteroscopy with Holmium laser lithotripsy and stone basketing, right ureteral stent insertion.
--- NOTE | 2023-04-15 10:35 | XR ---
EXAMINATION TYPE: XR KUB DATE OF EXAM: 04/15/2023 COMPARISON: Abdominal radiograph 04/08/2023, CT abdomen and pelvis 02/19/2016 HISTORY: Kidney stone TECHNIQUE: KUB image of the abdomen was obtained with 2 radiographs. FINDINGS: Small bowel demonstrates no evidence for dilatation or air fluid levels. Gas and fecal material is seen in non-distended colon. No convincing evidence for pneumoperitoneum. No definitive calcifications overlying both kidneys. Gastric calcifications in the pelvis. There are 2 adjacent round calcifications overlying the sacrum just right of midline with largest measuring up to 2.0 cm. The lung bases are clear. The osseous structures are intact. Fixation hardware involving the right proximal femur. IMPRESSION: 1. Overall nonobstructive bowel gas pattern. 2. No definitive renal calculi. 3. There are 2 round calcifications overlying the sacrum corresponding to mesenteric calcifications o n CT.
[2023-04-15 10:52] LABS: Glucose,Whole Blood 88 mg/dL (70-110)
[2023-04-15] MEDS ORDERED: ONDANSETRON 4 MG/2 ML VIAL IVP ONE (10:52)
[2023-04-15] MEDS ORDERED: LACTATED RINGERS 1,000 ML IV ONE ×2 (10:53)
[2023-04-15] MEDS ORDERED: ONDANSETRON 4 MG/2 ML VIAL ONE (10:56)
[2023-04-15] MEDS ORDERED: PHENYLEPHRINE-0.9% NACL SYG 1,000 MCG/10 ML SYRINGE ONE (11:18)
[2023-04-15] MEDS ORDERED: PROPOFOL 10 MG/ML 20 ML VIAL IV ONE (11:18)
[2023-04-15] MEDS ORDERED: LIDOCAINE 2% INJ 20 MG/ML (2 ML VIAL) ONE (11:18)
[2023-04-15] MEDS ORDERED: SUCCINYLCHOLINE CHLORIDE 200 MG/10 ML VIAL IV ONE (11:18)
[2023-04-15] MEDS ORDERED: fentaNYL (PF) 50 MCG/ML 2 ML AMP ONE (11:18)
[2023-04-15] MEDS ORDERED: MIDAZOLAM 2 MG/2 ML VIAL ONE (11:18)
[2023-04-15] MEDS ORDERED: ROCURONIUM 10 MG/ML (5 ML VIAL) IV ONE (11:18)
[2023-04-15] MEDS ORDERED: ePHEDrine 50 MG/ML 1 ML VIAL ONE (11:18)
[2023-04-15] MEDS ORDERED: NEOSTIGMINE 1 MG/ML 10 ML VIAL ONE (11:18)
[2023-04-15] MEDS ORDERED: GLYCOPYRROLATE 0.2 MG/ML 2 ML VIAL ONE (11:18)
[2023-04-15] MEDS ORDERED: IOPAMIDOL-370 100ML BTL MISCELLANE ONE ×2 (11:45→11:50)
[2023-04-15 13:33] VITALS: TEMP 96.8
--- NOTE | 2023-04-15 13:37 | P.OP ---
Date of Procedure: 04/15/23 Preoperative Diagnosis: Right ureteral calculus, bilateral renal calculi Postoperative Diagnosis: Same Procedure(s) Performed: Cystoscopy, bilateral retrograde pyelogram, bilateral ureteroscopy with Holmium laser lithotripsy, left ureteroscopy with stone basketing, bilateral ureteral stent insertion Anesthesia: ADELITA Surgeon: Valeriy Koehler Estimated Blood Loss (ml): 5 IV fluids (ml): 600 Pathology: other (Left renal calculus, sent for chemical analysis) Condition: stable Disposition: PACU Indications for Procedure: The patient is a 53-year-old white male with a history of urolithiasis, for which he underwent right ureteroscopy in 2016. He was recently found to have abnormal liver function tests. He underwent a CT scan for evaluation, revealing moderate right hydroureteronephrosis due to a 9 mm right distal ureteral calculus. Additional bilateral renal calculi measuring up to 7 mm in size were seen. He elected to undergo ureteroscopic removal of the right ureteral and renal calculi. Preoperatively, he indicated that he has had recent left-sided pain and thus desires removal of all calculi. Operative Findings: Impacted calculus within the right ureter at the level of the iliac vessels, fragmented. No left ureteral calculi seen. Several small left renal calculi, the largest (2-3 mm) removed via stone basketing. The remainder were fragmented. Bilateral ureteral stents were placed. Description of Procedure: The patient was taken to the operating room and placed in the dorsolithotomy position, with legs supported in Franko stirrups. The external genitalia was prepped and draped sterilely. The 30 lens was used to introduce the 21-Ukrainian Lucio cystoscopic sheath through the urethra and into the bladder under direct vision. The prostatic urethra showed evidence of partial obstruction due to a high median bar. The bladder was examined in its entirety. Both ureteral orifices were normal anatomic location and configuration No tumors or foreign bodies were seen. Using a 10-Ukrainian cone-tipped catheter, bilateral retrograde pyelograms were performed. The course and caliber of the ureter on the left side was normal, showing no filling defects or obstruction. There was no evidence of left hydronephrosis. On the right side, a calculus was seen in the area of the iliac vessels. The ureter proximal to this was dilated. The cystoscope was removed. The Lucio semirigid ureteroscope was advanced into the bladder, and the right ureteral orifice was cannulated. the ureteroscope was slowly advanced under direct vision, up to the calculus. The 272 holmium laser probe was passed through the ureteroscope, and lithotripsy was performed. The calculus was impacted and adherent to the surrounding mucosa. As the calculus fragmented, it was possible to use the laser probe to pry the calculus away from the surrounding mucosa, thus allowing lithotripsy to be performed without injuring the adjacent mucosa. Ultimately, the vast majority of the calculus was fragmented and it was possible to advance the ureteroscope above this point, where the ureter appeared normal. The ureteroscope was pulled back to the area of stone impaction, and it was evident that there were still small stone fragments adherent to the mucosa. The decision was made to place a ureteral stent rather than to attempt removal of the right renal calculi. A 0.038 inch Glidewire was passed through the ureteroscope and up to the right renal pelvis. The ureteroscope was removed, and the Glidewire was backloaded into the cystoscope, which was passed into the bladder. A 26 cm, 6-Ukrainian double-J ureteral stent was placed over the wire. Proper stent positioning was verified fluoroscopically and endoscopically. A 0.038 inch Glidewire was passed through the cystoscope. The left ureteral orifice was cannulated, and the Glidewire was advanced up to the renal pelvis. The cystoscope was removed, and an 11/13-Ukrainian ureteral access catheter was passed over the wire, up to the proximal ureter. The [employer] flexible ureteroscope was then passed through the ureteral access catheter sheath and advanced under direct vision up to the left renal pelvis. Each calyx was exami genaro. Multiple small calculi were seen measuring 1-2 mm in size. These were too small to basket, but were fragmented using the holmium laser such that the fragments were no larger than the size of the laser fiber tip. A 2-3 mm calculus was seen within a mid pole calyx, and this was removed using a 0 tip basket. Several small calculi were seen within a lower pole calyx, and an area where stone basketing was difficult. The largest of these calculi measured approximately 3 mm, and all were fragmented. After completing this, each calyx was examined and no residual calculi were seen. Pullout ureteroscopy showed no evidence of ureteral trauma. The ureteroscope was removed, and the cystoscope was replaced into the bladder. A 0.038 inch Glidewire was passed through the cystoscope. The left ureteral orifice was cannulated, and the Glidewire was advanced up to the left renal pelvis. A 26 cm, 6-Ukrainian double-J ureteral stent was placed over the wire. Proper stent positioning was verified fluoroscopically and endoscopically. The bladder was emptied and the cystoscope removed. The patient tolerated the procedure well and was taken to the recovery room in stable condition. [facility] Report: Procedure Acuity: Semi-Urgent Stone Size and Location: 9 mm, right distal ureter Ureteral Dilation: No Ureteral Access Sheath Used: Yes Stone Sent for Analysis: Yes All Stones/Fragments Were Removed with a Basket: No Complications: No Preoperative Antibiotics Given: Yes Stent Placed: Yes If Stent Placed, Was String Left Attached: No If Stent Placed, When is it to be Removed: 3 weeks Discharge Medications: Tamsulosin, Toradol
[2023-04-15 13:55] VITALS: RESP 16
[2023-04-15] MEDS ORDERED: KETOROLAC 15 MG/ML 1 ML VIAL ONE (14:27)
[2023-04-15] MEDS ORDERED: KETOROLAC 15 MG/ML 1 ML VIAL IVP ONE (14:35)
--- NOTE | 2023-04-15 14:36 | FL ---
Intraoperative/procedural fluoroscopic services were provided bilateral retrograde urography. Interva l placement of bilateral ureter stents. Focal irregularity involving the distal third of the right ur eter. Total fluoroscopy time is 23.4 seconds with a total of 8 submitted images to PACS. Total DAP 11 .257 Gycm2. Please see the operative note for further details.
[2023-04-15] MEDS ORDERED: HYDROmorphone 0.5 MG/0.5 ML SYRINGE IVP ONE (15:02)
[2023-04-15 15:37] VITALS: BP 113/70; PULSE 78
== END 2023-04-15 16:09 | disposition home or self-care (01) ==
LOC: OR 10:06
PROVIDERS: ATTEND Urology
DX: N13.2 Hydronephrosis with renal and ureteral calculous obstruction (principal); E11.9 Type 2 diabetes mellitus without complications; G89.29 Other chronic pain; F17.200 Nicotine dependence, unspecified, uncomplicated; Z90.49 Acquired absence of other specified parts of digestive tract; Z79.82 Long term (current) use of aspirin; Z79.899 Other long term (current) drug therapy; Z88.0 Allergy status to penicillin
CPT/HCPCS: 82365; 74420; 74018; 52356; C2625; C1758; C1769; J2250; J0330; J2710; J0690; J2405; J3010; J1885; J2704; J1170; Q9967; J2001; J2371

== ENCOUNTER → 2024-06-29 | Outpatient (CLI) | payer OTHER ==
[2024-06-29 15:36] VITALS: BP 127/80; PULSE 92; RESP 16; TEMP 98.2
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
== END ==
LOC: 3 N SLEEP 15:04
PROVIDERS: ATTEND Internal Medicine
CPT/HCPCS: 99211

== ENCOUNTER 2025-02-26 18:47 | Emergency (ER) | payer OTHER ==
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
[2025-02-26 19:28] LABS: ALT 69 U/L (4-49); African American GFR (CKD) 88 (>60 ml/min/1.73 sqM); Albumin 4.6 g/dL (3.5-5.0); Alcohol <10 mg/dL; Anion Gap 13 mmol/L; Blood Urea Nitrogen 13 mg/dL (9-20); Calcium 10.2 mg/dL (8.4-10.2); Carbon Dioxide 24 mmol/L (22-30); Chloride 105 mmol/L (98-107); Glucose 130 mg/dL (74-99); Non-African American GFR(CKD) 76 (>60 ml/min/1.73 sqM); Sodium 142 mmol/L (137-145); Total Bilirubin 0.7 mg/dL (0.2-1.3); Total Protein 7.9 g/dL (6.3-8.2)
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
[2025-02-26 19:29] LABS: AST 68 U/L (17-59); Alkaline Phosphatase 258 U/L (38-126); Potassium 4.6 mmol/L (3.5-5.1)
[2025-02-26] MEDS: HYDROmorphone 0.5 MG/0.5 ML SYRINGE IVP STA ×3 (19:45→20:54)
[2025-02-26 19:48] LABS: Prothrombin Time 10.6 sec (10.0-12.5)
[2025-02-26 19:49] LABS: Partial Thromboplastin Time 20.9 sec (22.0-30.0)
[2025-02-26] MEDS: HYDROmorphone 1 MG/ML 1 ML SYRINGE IVP STA (20:01)
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
[2025-02-26] MEDS: DIPH,PERTUS(ACELL)TETVAC-LF 0.5 ML VIAL IM ONE (20:24)
[2025-02-26 20:26] LABS: Basophils # (A) 0.03 10*3/uL (0.00-0.10); Basophils % (A) 0.2 %; Eosinophils # (A) 0.07 10*3/uL (0.04-0.35); Eosinophils % (A) 0.5 %; HCT 41.7 % (39.6-50.0); HGB 13.9 g/dL (13.0-17.0); Lymphocytes % (A) 12.9 %; MCH 28.3 pg (27.0-32.0); MCHC 33.3 g/dL (32.0-37.0); MCV 84.9 fL (80.0-97.0); Monocytes % (A) 5.2 %; Neutrophils # (A) 12.51 10*3/uL (1.80-7.70); Neutrophils % (A) 80.6 %; Platelet Count 288 10*3/uL (140-440); RBC 4.91 10*6/uL (4.40-5.60); RDW 14.4 % (11.5-14.5)
[2025-02-26] MEDS: NICOTINE 21MG/24HR PATCH TRANSDERM STA (20:53)
[2025-02-26 23:05] VITALS: BP 119/84; PULSE 81; RESP 16; TEMP 97.6
== END 2025-02-26 20:55 | disposition other institution (70) ==
LOC: EC 18:47
DX: S62.92XA Unspecified fracture of left hand, initial encounter for closed fracture (principal); S32.9XXA Fracture of unspecified parts of lumbosacral spine and pelvis, initial encounter for closed fracture; F17.210 Nicotine dependence, cigarettes, uncomplicated; Z88.0 Allergy status to penicillin; V22.49XA Other motorcycle driver injured in collision with two- or three-wheeled motor vehicle in traffic accident, initial encounter; Y92.410 Unspecified street and highway as the place of occurrence of the external cause
CPT/HCPCS: 93005; 86900; 86901; 80053; 83605; 85025; 85610; 85730; 86850; 72170; 73130; 71045; 72125; 70450; 71260; 74177; 90715; 29125; 99291; 96374; 96376 ×3; 90471; G0480; S4990; J1171 ×2; Q9967; 36415; 80320